=== PATIENT | female | born 1935 | race Caucasian/White ===

== ENCOUNTER 2017-12-11 09:12 | Emergency (ER) | payer OTHER ==
[~2017-12-11] VITALS: Ht 157.5 cm; Wt 68.0 kg
[~2017-12-11 09:12] MED LIST: ASA-EC81 MG PO; ASPIR 8181 MG; LoPRESSOR 50MG TAB PO; METOPROLOL SUCC50 MG; NORVASC 5MG TAB PO; PLAVIX 75MG PO; SYNTHROID75 MCG; Synthroid PO
[2017-12-11] MEDS ORDERED: MUPIROCIN15 GM TOP (13:18)
[2017-12-11] MEDS ORDERED: SILVADENE20 GM TOP (13:18)
== END 2017-12-11 13:30 | disposition home or self-care (01) ==
LOC: ER 09:12
DX: T23.002A Burn of unspecified degree of left hand, unspecified site, initial encounter (principal); S01.82XA Laceration with foreign body of other part of head, initial encounter; S80.01XA Contusion of right knee, initial encounter; R42 Dizziness and giddiness; X10.0XXA Contact with hot drinks, initial encounter; W26.8XXA Contact with other sharp object(s), not elsewhere classified, initial encounter; Y93.89 Activity, other specified; Y92.018 Other place in single-family (private) house as the place of occurrence of the external cause; Y99.8 Other external cause status

== ENCOUNTER 2018-01-03 09:01 | Outpatient (CLI) | payer OTHER ==
[~2018-01-03 09:01] MED LIST changes: +MUPIROCIN15 GM TOP; +SILVADENE20 GM TOP
== END 2018-01-03 09:22 | disposition home or self-care (01) ==
LOC: NUCLEAR 09:01
DX: R55 Syncope and collapse (principal); I67.89 Other cerebrovascular disease

== ENCOUNTER 2018-05-15 14:46 | Emergency (ER) | payer OTHER ==
[~2018-05-15] VITALS: Ht 152.4 cm; Wt 61.2 kg
== END 2018-05-15 17:05 | disposition home or self-care (01) ==
LOC: ER 14:46
DX: S93.491A Sprain of other ligament of right ankle, initial encounter (principal); S70.01XA Contusion of right hip, initial encounter; W01.198A Fall on same level from slipping, tripping and stumbling with subsequent striking against other object, initial encounter; Y93.01 Activity, walking, marching and hiking; Y92.018 Other place in single-family (private) house as the place of occurrence of the external cause; Y99.8 Other external cause status

== ENCOUNTER 2020-05-02 08:09 | Outpatient (CLI) | payer OTHER | END 2020-05-02 15:00 | disposition home or self-care (01) | LOC: LAB 08:09 | PROVIDERS: ATTEND Orthopaedic Surgery | DX: M85.88 Other specified disorders of bone density and structure, other site (principal); E21.2 Other hyperparathyroidism; E88.89 Other specified metabolic disorders; E55.9 Vitamin D deficiency, unspecified; M81.8 Other osteoporosis without current pathological fracture; E56.1 Deficiency of vitamin K ==

== ENCOUNTER 2020-05-02 09:04 | Outpatient (CLI) | payer OTHER | END 2020-05-02 09:07 | disposition home or self-care (01) | LOC: RAD 09:04 | PROVIDERS: ATTEND Orthopaedic Surgery | DX: Z96.653 Presence of artificial knee joint, bilateral (principal) ==

== ENCOUNTER 2020-05-13 12:25 | Outpatient (CLI) | payer OTHER | END 2020-05-13 12:39 | disposition home or self-care (01) | LOC: NUCLEAR 12:25 | PROVIDERS: ATTEND Orthopaedic Surgery | DX: M81.0 Age-related osteoporosis without current pathological fracture (principal) ==